=== PATIENT | male | born 1990 | race Two or more races ===

== ENCOUNTER 2017-02-28 13:54 | Inpatient (IN) | payer OTHER ==
[~2017-02-28] VITALS: Ht 182.9 cm; Wt 88.7 kg
[2017-02-28 14:56] LABS: BASOPHIL % 0.2 % (0-2); PLATELET COUNT 139 x10^3mcL (130-400); RED CELL DISTRIBUTION WIDTH 12.9 % (11.5-14.5)
[2017-02-28] MEDS ORDERED: TEGRETOL200 MG PO (15:02)
[2017-02-28] MEDS ORDERED: PAXIL10 MG PO (15:03)
[2017-02-28] MEDS ORDERED: ZONISAMIDE100 M1 PO (15:04)
[2017-02-28] MEDS ORDERED: RISPERIDONE1 MG PO ×2 (15:05)
[2017-02-28] MEDS ORDERED: DIVALPROEX SOD500 M2 PO ×2 (15:06→15:07)
--- NOTE | 2017-02-28 15:11 | NUR ---
LEODAN FOR SIERZURE ACTIVITY. PIV PLACED. NS BOLUS #1 OF 2 INFUSING- ATIVAN IV GIVEN. MRSA DONE. MED REC DONE. CXR DONE. WILL BE ADMITTED- REPORT CALLED.
[2017-02-28 15:31] LABS: FREE T4 0.81 ng/dL (0.76-1.46); FREE THYROXINE INDEX 2.1 ug/dL (1.4-4.5); T4(THYROXINE) 6.5 ug/dL (4.7-13.3)
[2017-02-28 15:45] LABS: CALCIUM 9.2 mg/dL (8.5-10.1); CARBON DIOXIDE 27.2 mmol/L (21-32); CHLORIDE SERUM 104 mmol/L (98-107); CREATININE SERUM 0.6 mg/dL (0.7-1.3); GFR1 > 60 mL/min; GLUCOSE SERUM 126 mg/dL (74-106); POTASSIUM SERUM 3.7 mmol/L (3.5-5.1); SODIUM SERUM 141 mmol/L (136-145)
[2017-02-28 15:49] LABS: ALKALINE PHOSPHATASE 47 U/L (46-116); ALT/SGPT 48 U/L (16-63); AST/SGOT 32 U/L (15-37); BILIRUBIN TOTAL 0.3 mg/dL (0.20-1.00); CHOLESTEROL 181 mg/dL (<200); CHOLESTEROL/HDL RATIO 3.5; HDL CHOLESTEROL 52 mg/dL (40-60); LIPASE 104 IU/L (73-393); TOTAL PROTEIN, SERUM 7.4 g/dL (6.4-8.2); TRIGLYCERIDES 173 mg/dL (<150)
--- NOTE | 2017-02-28 15:54 | NUR ---
SECOND LITER OF NS HUNG/INFUSING. URINE SENT TO THE LAB. PT WILL GO TO THE FLOOR WHEN THE FLOOR HAS A SITTER- MOTHER IS AWARE.
[2017-02-28 15:55] LABS: MAGNESIUM 1.4 mg/dL (1.8-2.4); PHOSPHOROUS 3.3 mg/dL (2.5-4.9)
[2017-02-28 16:11] LABS: T3 TOTAL 1.04 ng/mL
[2017-02-28 16:20] LABS: microscopic required? NO
[2017-02-28 16:26] LABS: UA SPECIFIC GRAVITY 1.015 (1.005-1.035); urine erythrocyte NEGATIVE (NEGATIVE)
[2017-02-28 16:36] LABS: AMPHETAMINE QUAL UR NONE DETECTED (NEG <=1000)
--- NOTE | 2017-02-28 18:37 | NUR ---
TRIED TO CALL REPORT TO [facility], BUT SHE IS CHECKING WITH HER CHARGE NURSE, TO BE SURE THEY ARE STAFFED WITH A SITTER FOR THE PT. WILL CALL BACK.
--- NOTE | 2017-02-28 18:51 | NUR ---
REPORT CALLED TO [facility]- PT CAN BE TRANSFERRED AT 1900, A SITER WILL BE AVAILABLE THEN. WILL GO TO FLOOR WITH TECH.
--- NOTE | 2017-02-28 19:06 | NUR ---
REC'D PT FROM ER VIA [facility]. PT HAS HX OF MR. PT IS AAOX1. SEIZURE PRECAUTION IN PLACE. TELE #18 SR. RESP EVEN AND UNLABORED. NO SOB NOTED. IV NOTED TO RH. INTACT AND PATENT. BED IN LOWEST POSITION. CALL LIGHT WITHIN REACH. WILL ENDORSE TO PRIMARY RN.
[2017-02-28 19:35] VITALS: BP 135/74
--- NOTE | 2017-02-28 20:50 | NUR ---
RECEIVED PT IN BED AWAKE VERBAL AMBULATORY NOT IN ANY DISTRESS BREATHING EASY AND SPONT LUNGS CTA SR IN THE MONITOR TELE #18 NO CP OR PRESSURE, SEIZURE PREC POSTED, CLOSELY MONITORED, IVF NS STARTED @ 100CC/HR IV ACCESS RH PATENT NON INFIL, SCD'S ON FOR DVT PROPHYLAXIS, WILL CONT TO MONITOR.
--- NOTE | 2017-02-28 23:00 | NUR ---
UNABLE TO GIVE DUE MEDS PT IS ASLEEP.
--- NOTE | 2017-03-01 04:07 | NUR ---
CALLED DR HOLCOMB ASKING IF OK TO GIVEN MEDS AT THIS TIME, AWAITING FOR ORDERS.
--- NOTE | 2017-03-01 04:24 | NUR ---
MG OXIDE REORDERED GIVEN INDICATED, PT ALSO RECEIVED TEGRETOL PO, NO SEIZURE ACTIVITY SINCE ADMITTED IN THE UNIT, SLEPT WELL, IVF INFUSING NS @ 100CC/HR IV ACCESS PATENT NON INFIL, FAMILY AT BEDSIDE, CONT TO MONITOR.
[2017-03-01 05:07] VITALS: BP 128/75
[2017-03-01 06:13] LABS: BASOPHIL % 0.3 % (0-2); PLATELET COUNT 134 x10^3mcL (130-400); RED CELL DISTRIBUTION WIDTH 12.9 % (11.5-14.5)
[2017-03-01 06:19] LABS: CALCIUM 8.6 mg/dL (8.5-10.1); CARBON DIOXIDE 30.5 mmol/L (21-32); CHLORIDE SERUM 109 mmol/L (98-107); CREATININE SERUM 0.6 mg/dL (0.7-1.3); GFR1 > 60 mL/min; GLUCOSE SERUM 100 mg/dL (74-106); MAGNESIUM 1.6 mg/dL (1.8-2.4); POTASSIUM SERUM 4.1 mmol/L (3.5-5.1); SODIUM SERUM 145 mmol/L (136-145)
--- NOTE | 2017-03-01 06:53 | NUR ---
PT CALM AND COMFORTABLE, SEIZURE PREC, FAMILY AT BEDSIDE, DUE MEDS GIVEN, CONT TO MONITOR, WILL ENDORSE TO INCOMING SHIFT FOR F/U CARE.
--- NOTE | 2017-03-01 07:30 | NUR ---
PATIENT IS IN BED, APPEARS TO BE RESTING WELL. MOTHER AT BEDSIDE. SZ PRECAUTIONS IN PLACE. IVF INFUSING WELL, SITE PATENT. LUNGS CLEAR ON ROOM AIR. TELE [address]. NO ACUTE DISTRSS NOTED. PATIENT'S MOTHER INSTUCTED TO USE CALL LIGHT FOR ASSIST.
--- NOTE | 2017-03-01 08:40 | NUR ---
DR BURGESS AND MEDICAL TEAM INTO SEE PATIENT AND DISCUSS PLAN OF CARE.
[2017-03-01 09:37] VITALS: BP 109/74
[2017-03-01 13:28] VITALS: BP 125/69
--- NOTE | 2017-03-01 15:11 | NUR ---
PATIENT REMAINS IN BED WITH MOTHER AT BEDSIDE. NO SZ ACTIVITY NOTED. DENIES ANY PAIN OR DISCOMFORT. WILL CONTINUE TO MONITOR.
[2017-03-01 17:12] VITALS: BP 120/94
--- NOTE | 2017-03-01 17:33 | NUR ---
PATIENT DISLODGED IV ON RIGHT HAND. NEW IV STARTED ON LEFT F/A. IVF INFUSING WELL. FAMILY MEMBER AT BEDSIDE. PATIENT HAS BEEN CALM AND COOPERATIVE. NO SZ ACTIVITY NOTED. WILL CONTINUE TO MONITOR.
--- NOTE | 2017-03-01 19:54 | NUR ---
REC'D REPORT FROM DAY NURSE. AAOX1. DEVELOPMENTAL DELAY. LAYING IN BED COMFORTABLE. TELE# 18. LUNG SOUNDS ARE CTA. ON RA, NO SOB. BREATHING EVEN AND UNLABORED. SEIZURE PRECAUTION IN PLACE. ABD ROUND AND ACTIVE. NO EDEMA NOTED. IV ACCESS PATENT AND INTACT. FAMILY AT BEDSIDE. BED IN LOWEST POSITION. CALL LIGHT WITHIN REACH. WILL PROCEED TO THE PLAN OF CARE.
[2017-03-01 21:11] VITALS: BP 127/89
--- NOTE | 2017-03-01 22:03 | NUR ---
GIVEN PT SCHEDULED MEDS. TOLERATED ALL MEDS WELL. WILL CONT TO MONITOR.
--- NOTE | 2017-03-02 00:58 | NUR ---
ROUNDS MADE, PT IS SLEEPING WITH EYES CLOSED. NO DISTRESS NOTED. WILL CONT TO MONITOR.
[2017-03-02 06:16] VITALS: BP 136/83
[2017-03-02 06:27] LABS: CALCIUM 8.7 mg/dL (8.5-10.1); CARBON DIOXIDE 23.6 mmol/L (21-32); CHLORIDE SERUM 108 mmol/L (98-107); CREATININE SERUM 0.6 mg/dL (0.7-1.3); GFR1 > 60 mL/min; GLUCOSE SERUM 100 mg/dL (74-106); MAGNESIUM 1.8 mg/dL (1.8-2.4); PHOSPHOROUS 4.7 mg/dL (2.5-4.9); POTASSIUM SERUM 3.9 mmol/L (3.5-5.1); SODIUM SERUM 142 mmol/L (136-145)
--- NOTE | 2017-03-02 06:44 | NUR ---
PT SLEPT THROUGHOUT THE SHIFT. NO SIGNIFICANT CHANGES OR DISTRESS NOTED. ALL NEEDS MET AND ATTENDED TO. IV ACCESS PATENT AND INTACT. WILL ENDORSE ALL CARE TO ONCOMING NURSE.
[2017-03-02 07:04] LABS: BASOPHIL % 0.4 % (0-2)
[2017-03-02 07:05] LABS: PLATELET COUNT 121 x10^3mcL (130-400)
--- NOTE | 2017-03-02 07:56 | NUR ---
RECEIVED AWAKE, FOLLOWS SIMPLE COMMANDS. NO DISTRESS NOTED. NO ACTIVE SEIZURE ACTIVITIES. PT DENIES PAIN . SZ PREC. MAINTINED. CALL LIGHT WITHIN REACH. WILL CONTINUE WITH PLAN OF CARE.
[2017-03-02 10:17] VITALS: BP 134/89
[2017-03-02 13:29] VITALS: BP 131/82
[2017-03-02 17:38] VITALS: BP 124/76
--- NOTE | 2017-03-02 19:01 | NUR ---
PT REMAINS IN NO DISTRESS, AWAKE AND ALERT. NO CHANGES IN VS. NO C/O PAIN OR DISCOMFORT AT THIS TIME. FAMILY AT BEDSIDE. NO SZ ACTIVITIES NOTED. SZ PREC. MAINTAINED. CALL LIGHT WITHIN REACH. WILL BE ENDORSED TO INCOMING SHIFT.
--- NOTE | 2017-03-02 19:19 | NUR ---
REC'D REPORT FROM DAY NURSE. SITTING UP IN BED COMFORTABLY. DENIES PAIN. NO DISTRESS NOTED AT THIS TIME. TELE# 18. LUNG SOUNDS ARE CTA. ON RA, SOB. BREATHING EVEN AND UNLABORED. SZ PRECAUTION IN PLACE. BED ALARM ON. ABD IS ROUND AND ACTIVE. NO EDEMA NOTED. IV ACCESS INTACT AND PATENT INFUSING WELL. WILL PROCEED TO THE PLAN OF CARE.
[2017-03-02 20:47] VITALS: BP 131/82
--- NOTE | 2017-03-03 01:25 | NUR ---
ROUNDS MADE, PT IS SLEEPING WITH EYES CLOSED. NO DISTRESS NOTED. WILL CONT TO MONITOR.
[2017-03-03 05:30] VITALS: BP 126/85
--- NOTE | 2017-03-03 05:37 | NUR ---
ROUNDS MADE, PT IS SLEEPING. NO DISTRESS NOTED. WILL CONT TO MONITOR.
--- NOTE | 2017-03-03 06:02 | NUR ---
PT SLEPT THROUGHOUT THE SHIFT. NO ACTIVE SZ ACTIVITIES NOTED. NO DISTRESS NOTED. ALL NEEDS MET AND ATTENDED TO. NO SIGNIFICANT CHANGES NOTED. IV ACCESS INTACT AND PATENT INFUSING WELL. WILL ENDORSE ALL CARE TO ONCOMING NURSE.
[2017-03-03 06:24] LABS: BASOPHIL % 0.2 % (0-2); PLATELET COUNT 132 x10^3mcL (130-400); RED CELL DISTRIBUTION WIDTH 12.6 % (11.5-14.5)
[2017-03-03 06:37] LABS: CALCIUM 8.9 mg/dL (8.5-10.1); CARBON DIOXIDE 23.7 mmol/L (21-32); CHLORIDE SERUM 107 mmol/L (98-107); CREATININE SERUM 0.6 mg/dL (0.7-1.3); GFR1 > 60 mL/min; GLUCOSE SERUM 98 mg/dL (74-106); POTASSIUM SERUM 3.9 mmol/L (3.5-5.1); SODIUM SERUM 142 mmol/L (136-145)
--- NOTE | 2017-03-03 07:42 | NUR ---
RECEIVED AWAKE, ALERT AND ORIENTED. IN NO RESP. DISTRESS. VS WNL. NO C/O PAIN OR DISCOMFORT. NO ACTIVE SZ ACTIVITIES. FAMILY AT BEDSIDE. IVF INFUSING WELL AND SITE CLEAR. CALL LIGHT WITHIN REACH. WILL CONTINUE WITH PLAN OF CARE.
--- NOTE | 2017-03-03 09:20 | NUR ---
AM ROUNDS DONE BY DR. BURGESS AND MEDICAL TEAM. PLAN TO DC HOME TODAY. PT/FAMILY AGREED WITH PLAN
[2017-03-03] MEDS ORDERED: RXMED PO (09:23)
[2017-03-03 10:38] VITALS: BP 119/86
[2017-03-03] MEDS ORDERED: LAC30L PO (13:20)
[2017-03-03 13:34] VITALS: BP 124/84
[2017-03-03 15:27] VITALS: BP 124/84
--- NOTE | 2017-03-03 16:17 | NUR ---
PT DC'D HOME IN NO DISTRESS. AWAKE ALERT AND ORIENTED. NO CHANGES IN VS. NO C/O LIOR OR DISCOMFORT. DC INSTRUCTIONS REVIEWED WITH PT AND FAMILY. HL REMOVED AND SITE CLEAR. NO ACTIVE SEIZURE ACTIVITIES NOTED TODAY. PERSONAL BELONGINGS TAKEN HOME.
== END 2017-03-03 15:57 | disposition home or self-care (01) | DRG 279 ==
LOC: ED 13:54 → DU 14:33
PROVIDERS: Specialist; ADMIT Family Medicine Sports Medicine
DX: K72.90 Hepatic failure, unspecified without coma (principal); D69.6 Thrombocytopenia, unspecified; S09.90XA Unspecified injury of head, initial encounter; G40.909 Epilepsy, unspecified, not intractable, without status epilepticus; R62.50 Unspecified lack of expected normal physiological development in childhood; E83.42 Hypomagnesemia; E78.5 Hyperlipidemia, unspecified; D64.9 Anemia, unspecified; E78.1 Pure hyperglyceridemia; E02 Subclinical iodine-deficiency hypothyroidism; Z68.26 Body mass index [BMI] 26.0-26.9, adult; W18.39XA Other fall on same level, initial encounter; Y93.89 Activity, other specified; Y92.510 Bank as the place of occurrence of the external cause
CPT/HCPCS: 83880; 84439; J2060; J7030; Q0092